=== PATIENT | female | born 1980 | race Caucasian/White ===

== ENCOUNTER 2022-09-13 17:46 | Emergency (ER) | payer MEDICAID, SELFPAY ==
[2022-09-13 17:47] VITALS: BP 147/100; PULSE 102; RESP 18; TEMP 36.1; O2SAT 98; BMI 40.6
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
[2022-09-13] MEDS: Acetaminophen 325 MG Tablet PO (19:26)
[2022-09-13] MEDS: Ibuprofen 200 MG Tablet 400 MG PO (19:26)
== END 2022-09-13 20:23 | disposition home or self-care (01) ==
PROVIDERS: Emergency Provider Emergency Medicine; Visit Provider Emergency Medicine
DX: S20.219A Contusion of unspecified front wall of thorax, initial encounter (principal); S50.11XA Contusion of right forearm, initial encounter; F17.210 Nicotine dependence, cigarettes, uncomplicated; J45.909 Unspecified asthma, uncomplicated; Z79.899 Other long term (current) drug therapy; Y04.8XXA Assault by other bodily force, initial encounter
CPT/HCPCS: 71101; 73090; 99285

== ENCOUNTER 2023-01-18 13:21 | Emergency (ER) | payer MEDICAID, SELFPAY ==
[2023-01-18 13:23] VITALS: BP 155/107; PULSE 90; RESP 18; TEMP 36.1; O2SAT 99; BMI 41.3
--- NOTE | 2023-01-18 13:59 | EDS_ITS ---
HPI History of Present Illness Chief Complaint: Cold Sx Detail of Chief Complaint: Productive cough for approximately 2 weeks Informant: patient Onset/Context/Timing Onset: Weeks (Approximately 2 weeks) Context: Sudden Onset Timing: Continuous and Waxes and wanes Quality: Dyspnea, wheezing, productive cough Location: Respiratory Current Severity: Mild Maximum Severity: Moderate Worsened by: Cough and activity Relieved by: Nothing Associated Symptoms Associated Symptoms: Denies fever, rhinorrhea, congestion, postnasal drainage or sore throat Narrative Narrative: Patient is a 42-year-old woman who presents with productive cough of green- colored sputum for approximate 2 weeks. She is a smoker. She presents smoking 1/4 pack/day. She was smoking half to 1 pack/day 5 years ago. She denies formal diagnosis of COPD. She has not been on prednisone the last 3 to 6 weeks. She denies fever or chills. Denies night sweats or weight loss. She denies headache, visual, ocular auditory symptoms. She denies chest pain. She denies GI or symptoms. She denies history of VTE. Denies leg pain, swelling discoloration. She has no risk factors for VTE. Prior similar symptoms: Yes Recent Illness/Hospitalization: No [facility] Medical History Asthma Home Medications albuterol sulfate 90 mcg/actuation aerosol inhaler (Ventolin HFA) 1 - 2 puff inhalation Q4H PRN PRN Wheezing ##1 02/12/14 [Rx Last Taken 09/28/15] albuterol sulfate 90 mcg/actuation aerosol inhaler (Ventolin HFA) 2 puff inhalation Q4H PRN PRN Wheezing ##1 01/18/23 [Rx Last Taken Unknown] doxycycline monohydrate 100 mg capsule 100 mg PO BID #14 CAPSULES 01/18/23 [Rx Last Taken Unknown] inhalational spacing device (Aerochamber MV spacer) #1 ea 01/18/23 [Rx Last Taken Unknown] prednisone 20 mg tablet 60 mg (3 x 20 mg) PO DAILY #12 TABLETS 01/18/23 [Rx Last Taken Unknown] Allergy/AdvReac Type Severity Reaction Status Date / Time amoxicillin [Amoxicillin] Allergy Hives Verified 01/18/23 13:23 Penicillins [cillins] Allergy Hives Verified 01/18/23 13:23 Social History (Updated 01/18/23 @ 13:32 by Nasreen Samuels) household members: family Smoking Status: Current every day smoker tobacco type: cigarettes ROS ROS ED Constitutional Constitutional ED: Denies chills, fever(s), subjective, sweats or weight loss Eyes Eyes: Denies blurry vision, change in vision or diplopia ENT ENT ED: Denies ear pain, rhinorrhea or sore throat Cardiovascular Cardiovascular: Denies chest pain, orthopnea, palpitations, paroxysmal nocturnal dyspnea or racing heartbeat Respiratory/Chest Respiratory/Chest: Reports cough, dyspnea, dyspnea on exertion and sputum; Denies orthopnea or paroxysmal nocturnal dyspnea Gastrointestinal Gastrointestinal: Denies abdominal pain, constipation, diarrhea, melena, nausea or vomiting Genitourinary Genitourinary ED: Denies dysuria, hematuria or urinary frequency Musculoskeletal Musculoskeletal: Denies arthralgias, back pain, myalgias or neck pain Integumentary Denies rash Neurologic Neurologic: Denies headache(s) or paresthesias Psychiatric Psychiatric: Denies anxiety Endocrine Endocrinology: Denies cold intolerance or heat intolerance Hematologic/Lymphatic Hematologic/Lymphatic: Reports systems reviewed and no addt'l complaints, except as documented Allergic/Immunologic Allergic/Immunologic ED: Denies mouth swelling or tongue swelling EXAM Physical Exam Const Vital Signs: 01/18/23 13:23 01/18/23 13:32 01/18/23 15:17 Temperature 97 F L Temperature Source Temporal Pulse Rate 90 88 Respiratory Rate 18 18 Respiratory Effort Normal Respiratory Pattern Normal Normal Blood Pressure 155/107 H Blood Pressure Mean 123 Pulse Ox 99 Oxygen Delivery Method Room Air 01/18/23 15:17 Temperature Temperature Source Pulse Rate Respiratory Rate Respiratory Effort Respiratory Pattern Blood Pressure Blood Pressure Mean Pulse Ox 96 Oxygen Delivery Method Room Air Positive well nourished, well developed and obese General Appearance ED: well developed and NAD; Negative for pallor Nutritional Appearance: obese HEENT Reports moist mucous membranes HEENT Narrative: Head is normal cephalic and atraumatic. Ears are normal. TMs are normal. Nares patent with no discharge. Posterior pharynx is normal. Eyes PERRL and EOMs intact bilaterally General Eye ED: Negative for pale conjunctiva or scleral icterus Neck no lymphadenopathy, supple and no JVD Chest Wall inspection of chest normal and palpation of chest normal Resp normal respiratory effort and No clear to auscultation bilaterally Auscultation: wheezes expiratory wheezes and scattered wheezes Cardio regular rate, regular rhythm, S1 normal heart sound, S2 normal heart sound and no murmurs GI normal to inspection, nondistended, normoactive bowel sounds, non-tender, non- distended and no masses; Negative for hepatosplenomegaly Back/Spine no CVA tenderness Thoracic Spine / Upper Back: Negative for thoracic spinal tenderness Lumbar Spine / Lower Back: Negative for lumbar spinal tenderness Extremity normal to inspection General Extremety ED: Negative for edema or tenderness General Extremity: Negative for edema Neuro oriented x3, CN's II-XII intact bilaterally and no sensory deficits noted Sensorium / Orientation: alert Psych mental status grossly normal Skin no rashes or lesions noted, no wounds and skin turgor normal General Skin Exam: Negative for jaundice or pallor MDM MDM MDM Narrative Medical decision making narrative: Frontal diagnosis is exacerbated COPD since she is a smoker versus pneumonia. Patient is PERC negative. Symptoms are not consistent with cardiac. Prior ER visits were reviewed. Plan is chest x-ray aerosol treatment, prednisone and doxycycline since the chest x-ray was normal. Underwent in to evaluate patient she did not receive her aerosol treatments. Should not receive her aerosol treatments since her orders did not go through. Once I fingerprinted her orders they went through History & Record Review Discussion w/independent historian: Patient and Friend Radiography Chest X-Ray - ED: 2 View and Read by ED Physician (Normal cardiac silhouette and size. Lung parenchyma is normal. Perihilar regions normal. Osseous structures are unremarkable. This independent reviewed interpreted by me.) Diagnostic Testing: Clinical Impression(s) from Imaging Studies Chest X-Ray 01/18/23 14:08 IMPRESSION: Normal x-ray examination of the chest. 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 Patient is moving more air. There is increased wheezing noted. Since patient has increased wheezing will discharge with burst of prednisone as well as antibiotics. Patient states that her MDI is essentially empty. A prescription for albuterol MDI was written as well as spacer since she does not have 1. Discharge Plan Triage Chief Complaint: Cold Sx ED Provider: Dinh Mclean Dx/Rx/DC Orders Clinical Impression: History of asthma, Acute bronchospasm, Acute exacerbation of chronic bronchitis, Hypertension Instructions: ED Bronchitis with Wheezing (Adult), ED Hypertension, To Be Confirmed Prescriptions: New prednisone 20 mg tablet 60 mg PO DAILY Qty: 12 0RF doxycycline monohydrate 100 mg capsule 100 mg PO BID Qty: 14 0RF albuterol sulfate [Ventolin HFA] 90 mcg/actuation HFA aerosol inhaler 2 puff inhalation Q4H PRN PRN (Reason: Wheezing) Qty: 1 0RF (DME) Aerochamber MV Spacer See Rx Instructions .Route Qty: 1 0RF Rx Instructions: As directed No Action albuterol sulfate [Ventolin HFA] 1 INHALER inhaler 1 - 2 puff inhalation Q4H PRN PRN (Reason: Wheezing) Qty: 1 0RF Primary Care Provider: Care Physician,No Primary Referrals: Care Physician,No Primary [Primary Care Provider] - Doctor,Your [Non-Staff] - 1 Week Activity Restrictions/Additional Instructions: If your breathing gets significantly worse you may administer 4 to 6 puffs of your rescue inhaler with use of spacer. Take medication prescribed until gone It is in your best interest to quit smoking. Your blood pressure was elevated and should be reassessed by your doctor. The name of your doctor is located on your insurance card issued to you by [facility]. Disposition Disposition: Home, Self Care
--- NOTE | 2023-01-18 14:08 | RAD_ITS ---
STUDY: X-RAY CHEST REASON FOR EXAM: Female, 42 years old. Productive cough, shortness of breath, wheezing TECHNIQUE: PA and lateral views of the chest. COMPARISON: Comparison is made with prior study of September 13, 2022. FINDINGS: The lungs are clear and expanded. There is no demonstrated pleural abnormality. Normal size heart. Normal mediastinum and key. Normal visualized pulmonary arteries. Normal visualized aortic arch and descending thoracic aorta. There are diffuse degenerative changes of the visualized thoracic spine. Normal visualized ribs, clavicles, and shoulders. There is no demonstrated abnormality of the visualized soft tissue structures of the upper abdomen. RAD/Chest PA and Lateral IMPRESSION: Normal x-ray examination of the chest. Electronically Signed: Jovany Colon MD at 14:27 EDT ,
[2023-01-18] MEDS: Doxycycline 100 MG CAPSULE PO (14:49)
[2023-01-18] MEDS: Albuterol 2.5 MG/3 ML VIAL.NEB. INHALATION (15:14)
[2023-01-18] MEDS: Ipratropium/Albuterol Sulfate 3 ML AMPUL.NEB INHALATION (15:14)
[2023-01-18 15:17] VITALS: PULSE 88; RESP 18; O2SAT 96
[2023-01-18] MEDS: predniSONE 20 MG Tablet 60 MG PO (15:35)
--- NOTE | 2023-01-18 15:59 | CM.ED ---
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 Patient lying on hospital bed and agreeable to speak with SW. SW inquired about patient's insurance and current PCP. Patient verified insurance and reports no current PCP. SW provided patient with a list of local PCPs in network with patient's insurance and accepting new patients. Patient was receptive towards list and voiced no other needs. SW remains available if needs arise. Angela Saldana MSW, [place]
[2023-01-18 16:19] VITALS: RESP 18
== END 2023-01-18 16:20 | disposition home or self-care (01) ==
PROVIDERS: Emergency Provider Emergency Medicine; Visit Provider Emergency Medicine
DX: J44.1 Chronic obstructive pulmonary disease with (acute) exacerbation (principal); I10 Essential (primary) hypertension; F17.210 Nicotine dependence, cigarettes, uncomplicated; E66.9 Obesity, unspecified
CPT/HCPCS: 94640; 71046; 99283

== ENCOUNTER 2023-05-31 14:51 | Emergency (ER) | payer MEDICAID, SELFPAY ==
[2023-05-31 14:52] VITALS: BP 145/97; PULSE 70; RESP 18; TEMP 36.2; O2SAT 100; BMI 41.5
--- OUTSIDE RECORDS SUMMARY | 2023-05-31 18:19 | XMS RPT_ITS | CCD ---
Author Name Unknown Address [address] [place] [address] Organization [facility] Care Team Providers Care Boiling Off Winder Name Role Phone OLIVIER EID Admitting Unavailable OLIVIER EID Attending Unavailable AA NO PCP, NO PCP Primary Care Unavailable AA NO PCP, NO PCP Primary Care Unavailable SANDRITA JEFFEYR Admitting Unavailable SANDRITA JEFFERY Attending Unavailable Unavailable Primary Care Provider Unavailabl e Allergies Allergy Classification Reported Allergen(s) Allergy Type Date of Onset Reaction(s) Facility Penicillins (antibiotic) (1 source) Amoxicillin Drug Allergy 11-16-2020 Swelling [facility] (1 source) Amoxicillin Drug Allergy [facility] Repository (1 source) Penicillin Drug Allergy [facility] (1 source) Amoxicillin Drug Allergy 11-16-2020 Swelling [facility] Medications Current Medications Medication Drug Class(es) Dates Sig (Normalized) Sig (Original) [id number] 200 actuat albuterol 0.09 mg/actuat metered dose inhaler (2 sources) beta2-Adrenergic Agonist take 2 puff(s) by inhalation every six hours as needed for wheezing albuterol sulfate HFA (VENTOLIN HFA) 108 (90 Base) MCG/ACT inhaler Inhale 2 puffs into the lungs every 6 hours as needed for Wheezing 0 Active sodium chloride flush 0.9 % injection 3 mL (1 source) Start: 09-26-2021 sodium chloride flush 0.9 % injection 3 mL Completed/Discontinued Medications Medication Drug Class(es) Dates Sig (Normalized) Sig (Original) aluminum & magnesium hydroxide-simethic one (MAALOX) 30 mL, lidocaine viscous hcl (XYLOCAINE) 5 mL (GI COCKTAIL) (1 source) Start: 09-26-2021 End: 09-26-2021 aluminum & magnesium hydroxide-simethi cone (MAALOX) 30 mL, lidocaine viscous hcl (XYLOCAINE) 5 mL (GI COCKTAIL) aspirin 81 mg chewable tablet (1 source) Platelet Aggregation Inhibitor, Nonsteroidal Anti-inflammatory Drug Start: 09-26-2021 End: 09-26-2021 aspirin chewable tablet 324 mg Problems Active Problems Problem Classification Problem Date Documented Da te Episodic/Chronic Abdominal pain (1 source) Epigastric pain; Translations: [Epigastric pain] Episodic Allergic reactions (1 source) Allergy status to penicillin; Translations: [ALLERGY STATUS TO PENICILLIN] Onset: 08-12-2019 Episodic External cause codes: Fall (1 source) Fall (on) (from) unspecified stairs and steps, initial encounter; Translations: [FALL ON FROM UNS STAIRS STEPS INIT] Onset: 04-04-2019 Headache; including migraine (2 sources) Headache; Translations: [HEADACHE] Onset: 08-12-2019 Episodic Nonspecific chest pain (1 source) Chest pain; Translations: [Chest pain, unspecified] Episodic Other ear and sense organ disorders (1 source) Otalgia, left ear; Translations: [Otalgia, unspecified] Episodic Past or Other Problems Problem Classification Problem Date Documented Da te Episodic/Chronic Other non-traumatic joint disorders (1 source) Pain in left ankle and joints of left foot; Translations: [PAIN IN LEFT ANKLE] Onset: 04-04-2019 Episodic Sprains and strains (1 source) Sprain of unspecified ligament of left ankle, initial encounter; Translations: [SPRAIN UNS LIGAMENT LT ANKLE INIT] Onset: 04-04-2019 Episodic Results Test Name Value Interpretation Reference Range Facil ity Vital Signs Date Time Vital Sign Value Performing Clinician Damien matute 09-26-2021 20:42-0400 Diastolic blood pressure 68 mm[Hg] [facility] 09-26-2021 20:42-0400 Heart rate 71 /min [facility] 09-26-2021 20:42-0400 Respiratory rate 18 /min [facility] 09-26-2021 20:42-0400 SaO2% (BldA) [Mass fraction] 98 % [facility] 09-26-2021 20:42-0400 Systolic blood pressure 132 mm[Hg] [facility] 09-26-2021 17:38-0400 Body height 146.1 cm [facility] 09-26-2021 17:38-0400 Body mass index (BMI) [Ratio] 36.58 kg/m2 [facility] 09-26-2021 17:38-0400 Body temperature 97.81 [degF] [facility] 09-26-2021 17:38-0400 Body weight 78.02 kg [facility] 11-16-2020 18:46-0400 Diastolic blood pressure 80 mm[Hg] [facility] Work Phone: 11-16-2020 18:46-0400 Heart rate 80 /min [facility] Work Phone: 11-16-2020 18:46-0400 Respiratory rate 18 /min [facility] Work Phone: 11-16-2020 18:46-0400 SaO2% (BldA) [Mass fraction] 97 % [facility] Work Phone: 11-16-2020 18:46-0400 Systolic blood pressure 120 mm[Hg] [facility] Work Phone: 11-16-2020 17:35-0400 Body height 152.4 cm [facility] Work Phone: 11-16-2020 17:35-0400 Body mass index (BMI) [Ratio] 38.67 kg/m2 [facility] Work Phone: 11-16-2020 17:35-0400 Body weight 89.81 kg [facility] Work Phone: 11-16-2020 17:09-0400 Body temperature 98.8 [degF] [facility] Work Phone: Encounters Encounter Date Encounter Type Care Provider Facility Start: 09-26-2021 End: 09-26-2021 Emergency department patient visit [facility] ED Procedures Date Procedure Procedure Detail Performing Clinician Start: 09-26-2021 Assay of troponin quantitative Onel Grewal APRN [employer] Work Phone: Start: 09-26-2021 Comprehensive metabo lic panel Onel Grewal APRN [employer] Work Phone: Start: 09-26-2021 Radiologic exam ches t 2 views Onel Grewal APRN [employer] Work Phone: Start: 09-26-2021 Ecg routine ecg w/le ast 12 lds w/i&r Onel Grewal [employer] Work Phone: Plan of Treatment Date Care Activity Detail Author Start: 01-13-2022 Influenza vaccination Flu vacc ine (Season Ended) [facility] Start: 01-13-2021 Influenza vaccination Flu vaccine (# 1) [facility] Work Phone: Start: 2000 DTaP/Tdap/Td vaccine (1 - Tdap) DTaP/Tdap/Td vaccine (1 - Tdap) [facility] Start: 1993 COVID-19 Vaccine (1) COVID-19 Vaccin e (1) [facility] Work Phone: Start: 1986 COVID-19 Vaccine (1) COVID-19 Vaccin e (1) [facility] EKG 12 Lead - Chest Pain EKG 12 Lead - Chest Pain ECG STAT 09/26/2021 5:57 PM EDT [facility] Work Phone: Payers Date Payer Category Payer Unknown [id number] 1980 Unknown [id number] 1958 Medicaid [id number] Social History Date Type Detail Facility Start: 11-16-2020 Tobacco smoking stat [facility] Current every day smoker [facility] Work Phone: Start: 11-16-2020 Tobacco use and exposure Never used [facility] Start: 11-16-2020 End: 09-26-2021 Alcohol intake Lifetime non-drinker (finding) [facility] Work Phone: Start: 11-16-2020 History SDOH Alcohol Frequency 1 [facility] Work Phone: Start: 1980 Sex Assigned At Not on file [facility] Work Phone: Start: 09-16-2021 End: 09-26-2021 Exposure to SARS-CoV-2 (event) Not sure [facility] Hospital Discharge instructions 11-16-2020 InstructionsAttachments Note Date & Type Note Facility 11-16-2020 Hospital Discharg e instructions Chris Alston PA-C - 11/16/2020 Follow-up with ENT. Return to the ED symptoms worsen or do not improve. Continue take odev-dcj-gynbnrk medication such as Aleve, Motrin, Tylenol as needed for somatic relief of discomfort. The following attachments cannot be sent through Care Everywhere.Earache: Adult (Martiniquais)documented in this encounter [facility] Work Phone: Evaluation note Note Date & Type Note Facility documented in this encounter [facility] Work Phone: Evaluation note Note Date & Type Note Facility documented in this encounter [facility] Work Phone: Hospital Discharge instructions Attachments Note Date & Type Note Facility Hospital Discharge instructions The following attachments cannot be sent through Care Everywhere.Chest Pain (Martiniquais)Dyspepsia (Martiniquais)documented in this encounter [facility] Work Phone: Summary Purpose Family History No Family History Records FoundNo Family History Records Found Advance Directives No Advanced Directives Records FoundNo Advanced Directives Records Found Reason for Referral Specialty Diagnoses / Procedures Referred By Tara randolph Referred To Contact Internal Medicine Diagnoses Chest pain, unspecified type Abdominal pain, epigastric Onel Grewal, PILY - [employer] [address] [place] [address] [place] [id number] Referral ID Status Reason Start Date Expiration Date V isits Requested Visits Authorized [id number] Open Specialty Services Required 09/26/2021 09/26/2022 1 1 Scheduling Instructions [facility] Internal Medicine - [address] [address] Additional Source Comments INFORMATION SOURCE (unrecogn ized section and content) DATE CREATED AUTHOR AUTHOR'S ORGANIZ ATION 10/08/2021 [facility] Reason for Visit (unrecogniz ed section and content) Reason Comments Chest Pain x 1 wk. pt states pa in came on while sitting watching tv. states felt like her heart rate paused then went to pain and became dizzy. Pt pain at 3/10, described as achey and sore. denies lightheadedness at this time, does report some slight SOB. Scheduled Active and Recently Administ ered Medications (unrecognized section and content) Linked Groups Order Group 1: Saline lock IV (COMPLETED) Routine, CONTINUOUS, Starting on 09/26/21 at 1800, Until Specified And sodium chloride flush 0.9 % injection 3 mLJump to med 3 mL, IntraVENous, EVERY 8 HOURS, First dose on 09/26/21 at 1749, Until Discontinued
Flush line with 3-5 mL
FOR RECORDS PERTAINING TO PATIENTS WHO ARE OR HAVE BEEN ENROLLED IN A CHEMICAL DEPENDENCY/SUBSTANCEABUSE PROGRAM, SOME INFORMATION MAY BE OMITTED. This clinical summary was aggregated from multiple sources. Caution should be exercised in using it in the provision of clinical care. This summary normalizes information from multiple sources, and as a consequence, information in this document may materially change the coding, format and clinical context of patient data. In addition, data may be omitted in some cases. CLINICAL DECISIONS SHOULD BE BASED ON THE PRIMARY CLINICAL RECORDS. [employer] provides no warranty or guarantee of the accuracy or completeness of information in this document.
== END 2023-05-31 18:05 | disposition left against medical advice (07) ==
LOC: ED 18:10
DX: R69 Illness, unspecified (principal); Z53.21 Procedure and treatment not carried out due to patient leaving prior to being seen by health care provider

== ENCOUNTER 2023-06-26 16:29 | Emergency (ER) | payer MEDICAID, SELFPAY ==
[2023-06-26 16:30] VITALS: BP 151/86; PULSE 105; RESP 20; TEMP 36.3; O2SAT 100; BMI 42.5
--- NOTE | 2023-06-26 16:51 | EDS_ITS ---
HPI <ROSS Arguelles - Last Filed: 06/26/23 20:08> HPI - Female History of Present Illness Chief Complaint: Narrative Narrative: Patient presenting today reporting that she is 13 weeks . This was confirmed via a urine test. She reports that she went to [place] emergency department a few weeks ago to have this confirmed, they obtained a urine test which was negative, she is requesting to have a blood test to confirm the . She is G1, P0. She denies any abdominal pain or vaginal bleeding. She reports that she did try calling [facility] for an appointment but has not heard back yet. She reports a PMH of asthma and tobacco use. Reports that she is currently trying to quit smoking. PFSH <ROSS Arguelles - Last Filed: 06/26/23 20:08> PFSH Medical History Asthma Heart murmur Home Medications albuterol sulfate 90 mcg/actuation aerosol inhaler (Ventolin HFA) 1 - 2 puff inhalation Q4H PRN PRN Wheezing ##1 02/12/14 [Rx Last Taken 09/28/15] inhalational spacing device (Aerochamber MV spacer) #1 ea 01/18/23 [Rx Last Taken Unknown] Allergy/AdvReac Type Severity Reaction Status Date / Time amoxicillin [Amoxicillin] Allergy Hives Verified 05/31/23 14:52 Penicillins [cillins] Allergy Hives Verified 05/31/23 14:52 Social History household members: family Smoking Status: Current every day smoker tobacco type: cigarettes and e- cigarettes ROS <ROSS Arguelles - Last Filed: 06/26/23 20:08> ROS ED Constitutional Constitutional ED: Denies chills or fever(s) Cardiovascular Cardiovascular: Denies chest pain Respiratory/Chest Respiratory/Chest: Denies cough or dyspnea Gastrointestinal Gastrointestinal: Denies abdominal pain, nausea or vomiting Genitourinary Genitourinary ED: Denies dysuria, hematuria or urinary frequency Musculoskeletal Musculoskeletal: Denies arthralgias or myalgias Integumentary Denies rash Neurologic Neurologic: Denies weakness EXAM <ROSS Arguelles - Last Filed: 06/26/23 20:08> Physical Exam Const Vital Signs: 06/26/23 16:30 06/26/23 18:14 Temperature 97.3 F L Temperature Source Temporal Pulse Rate 105 H 64 Respiratory Rate 20 H 15 Blood Pressure 151/86 H 124/77 H Blood Pressure Mean 107 92 Pulse Ox 100 98 Oxygen Delivery Method Room Air Positive well nourished, well developed and no apparent distress General Appearance ED: well developed HEENT Reports normocephalic and head/scalp atraumatic Mouth ED: Yes moist mucous membranes normal Eyes PERRL and EOMs intact bilaterally Neck full ROM and supple Chest Wall inspection of chest normal Resp normal respiratory effort and clear to auscultation bilaterally Cardio regular rate and regular rhythm GI soft to palpation, non-tender, non-distended and no masses Back/Spine normal ROM and normal to inspection Extremity normal to inspection and full ROM Neuro oriented x3, CN's II-XII intact bilaterally, moves all extremities, no focal motor deficits and no sensory deficits noted Sensorium / Orientation: awake and alert Psych mental status grossly normal and thought process normal Skin no rashes or lesions noted and no wounds <Dr. Sudarshan Rivera DO - Last Filed: 06/26/23 18:14> Physical Exam Const Vital Signs: 06/26/23 16:30 06/26/23 18:14 Temperature 97.3 F L Temperature Source Temporal Pulse Rate 105 H 64 Respiratory Rate 20 H 15 Blood Pressure 151/86 H 124/77 H Blood Pressure Mean 107 92 Pulse Ox 100 98 Oxygen Delivery Method Room Air MDM <ROSS Arguelles - Last Filed: 06/26/23 20:08> [facility] Narrative Medical decision making narrative: Patient presenting requesting to have a blood hCG test to confirm . She reports that she is currently about 13 weeks after confirming with a urine test. She has had no abdominal pain or vaginal bleeding, she reports that she feels well otherwise. Serum hCG is negative. I have given her an [facility] referral and she will be discharged home in stable condition. I have personally performed a face to face assessment of the patient and have reviewed the IVELISSE Note. I performed a substantive portion of the visit including all aspects of the following. My izaguirre findings include: History is [patient presents to the emergency department complaining of needing a confirmatory test of her . Patient states that she took a home test that was positive. She believes she might be 13 weeks . Her last menstrual period was early part of April. Patient states that she went to [facility] where she had a urine test weeks ago and that was negative. Patient complains of some breast tenderness and weight gain. She denies vomiting. She denies abdominal pain or vaginal bleeding. She states that she has been trying to get into see [facility] but has been unsuccessful. She has had no other pregnancies. No history of PCOS.] Exam is [HEENT-PERRLA, EOMI. Cranial nerves II through XII grossly intact. TMs clear. Mucous membranes moist. No adenopathy. Cardiovascular-regular rate and rhythm without murmur or ectopy Lungs-clear to auscultation, chest wall stable without crepitus or subcu emphysema Abdomen-normoactive bowel sounds, soft, nontender, no rebound or rigidity, no peritoneal signs. No abdominal masses noted. Extremities-intact ?4, normal range of motion, normal pulses, atraumatic] Medical Decison Making [we will obtain a serum test to evaluate further. Patient hemodynamically stable.] Other additions or changes: [None] patient serum test was negative. At this point she is advised to follow-up with her FORENSIC SPECIALIST regarding when she is not having menstrual period's. She is hemodynamically stable and is not having any abdominal pain and clinically looks well. I do not feel any further imaging is indicated. Lab Data Attestation: I reviewed the patient's lab results. Labs: Laboratory Results - last 24 hr 06/26/23 16:55 Serum , Qual NEGATIVE <Dr. Sudarshan Rivera, DO - Last Filed: 06/26/23 18:14> [facility] Narrative Medical decision making narrative: Patient presenting requesting to have a blood hCG test to confirm . She reports that she is currently about 13 weeks after confirming with a urine test. She has had no abdominal pain or vaginal bleeding, she reports that she feels well otherwise. I have personally performed a face to face assessment of the patient and have reviewed the IVELISSE Note. I performed a substantive portion of the visit including all aspects of the following. My izaguirre findings include: History is [patient presents to the emergency department complaining of needing a confirmatory test of her . Patient states that she took a home test that was positive. She believes she might be 13 weeks . Her last menstrual period was early part of April. Patient states that she went to [facility] where she had a urine test weeks ago and that was negative. Patient complains of some breast tenderness and weight gain. She denies vomiting. She denies abdominal pain or vaginal bleeding. She states that she has been trying to get into see [facility] but has been unsuccessful. She has had no other pregnancies. No history of PCOS.] Exam is [HEENT-PERRLA, EOMI. Cranial nerves II through XII grossly intact. TMs clear. Mucous membranes moist. No adenopathy. Cardiovascular-regular rate and rhythm without murmur or ectopy Lungs-clear to auscultation, chest wall stable without crepitus or subcu emphysema Abdomen-normoactive bowel sounds, soft, nontender, no rebound or rigidity, no peritoneal signs. No abdominal masses noted. Extremities-intact ?4, normal range of motion, normal pulses, atraumatic] Medical Decison Making [we will obtain a serum test to evaluate further. Patient hemodynamically stable.] Other additions or changes: [None] patient serum test was negative. At this point she is advised to follow-up with her FORENSIC SPECIALIST regarding when she is not having menstrual period's. She is hemodynamically stable and is not having any abdominal pain and clinically looks well. I do not feel any further imaging is indicated. Lab Data Labs: Laboratory Results - last 24 hr 06/26/23 16:55 Serum , Qual NEGATIVE Discharge Plan Triage Chief Complaint: ED Midlevel Provider: Samara Rodriguez ED Provider: Sudarshan Rivera Dx/Rx/DC Orders Clinical Impression: Amenorrhea Instructions: ED Amenorrhea Prescriptions: No Action albuterol sulfate [Ventolin HFA] 1 INHALER inhaler 1 - 2 puff inhalation Q4H PRN PRN (Reason: Wheezing) Qty: 1 0RF (DME) Aerochamber MV Spacer See Rx Instructions .Route Qty: 1 0RF Rx Instructions: As directed Primary Care Provider: Care Physician,No Primary Referrals: Noble Mcnamara MD [Med Staff - Active Staff] - 1 Week Care Physician,No Primary [Primary Care Provider] - Activity Restrictions/Additional Instructions: Follow-up with [facility] SPECIALIST. Disposition Disposition: Home, Self Care Discharge Date/Time: 06/26/23 18:15
[2023-06-26 18:02] LABS: Internal QC Validated? YES +Cl - CLEAR BKGD; Pregnancy, Serum, hCG Quali. NEGATIVE Negative
[2023-06-26 18:14] VITALS: BP 124/77; PULSE 64; RESP 15; O2SAT 98
== END 2023-06-26 18:15 | disposition home or self-care (01) ==
PROVIDERS: Physician Assistant; Emergency Provider Emergency Medicine; Visit Provider Emergency Medicine
DX: N91.2 Amenorrhea, unspecified (principal); Z32.02 Encounter for pregnancy test, result negative; F17.210 Nicotine dependence, cigarettes, uncomplicated; F17.290 Nicotine dependence, other tobacco product, uncomplicated
CPT/HCPCS: 84703; 99282

== ENCOUNTER 2023-12-26 20:16 | Emergency (ER) | payer MEDICAID, SELFPAY ==
[2023-12-26 20:17] VITALS: BP 136/94; PULSE 100; RESP 16; TEMP 36.1; O2SAT 96; BMI 45.0
--- NOTE | 2023-12-26 22:41 | ED.RN ---
Called for pt, no answer.
== END 2023-12-26 22:40 | disposition left against medical advice (07) ==
LOC: ED 22:48
DX: Z53.21 Procedure and treatment not carried out due to patient leaving prior to being seen by health care provider (principal)

== ENCOUNTER 2023-12-27 15:27 | Emergency (ER) | payer MEDICAID, SELFPAY ==
[2023-12-27 15:28] VITALS: BP 153/110; PULSE 89; RESP 18; TEMP 36.2; O2SAT 97; BMI 44.5
--- NOTE | 2023-12-27 16:09 | ED.VIS.FALL ---
HPI HPI - Fall History of Present Illness Chief Complaint: Fall Informant: patient Occured/Mechanism Occurred: Yesterday Mechanism/Context: Yes same level fall and Yes trip Pain/Injury Location: Abdomen Pain Location: abdomen Quality of Pain: - (Cramping) Worsened by: Nothing Relieved by: Heat, laying on side Associated Symptoms Associated Symptoms: Negative for Parasthesias, Weakness, Loss of function, Inability to ambulate, Loss of consciousness or Amnesia Narrative Narrative: Patient presents after a fall that occurred yesterday. Patient states she tripped over uneven pavement and fell forward. Patient states she landed on her chest and abdomen. Patient states she has been having some cramping in her abdomen. Patient states it is better with heat pads and a hot bath. Patient states that is also better with laying on her side. Patient states nothing makes it worse. Patient denies any head injury or loss of consciousness. Patient denies any paresthesias or weakness. Patient denies any other injuries. [facility] Medical History Heart murmur Asthma Home Medications ?Medication ?Instructions ?Recorded ?Last Taken ?Type albuterol sulfate 90 mcg/actuation 1 - 2 puff inhalation Q4H PRN PRN 02/12/14 09/28/15 Rx aerosol inhaler (Ventolin HFA) Wheezing ##1 inhalational spacing device #1 ea 01/18/23 Unknown Rx (Aerochamber MV spacer) Allergy/AdvReac Type Severity Reaction Status Date / Time amoxicillin (Amoxicillin) Allergy Hives Verified 12/27/23 15:28 Penicillins (cillins) Allergy Hives Verified 12/27/23 15:28 no surgical history Social History household members: family Smoking Status: Current every day smoker tobacco type: cigarettes and e-cigarettes ROS ROS ED Constitutional Constitutional ED: Denies chills or fever(s) Eyes Eyes: Denies blurry vision or change in vision ENT ENT ED: Denies rhinorrhea or sore throat Cardiovascular Cardiovascular: Denies chest pain or palpitations Respiratory/Chest Respiratory/Chest: Denies cough or dyspnea Gastrointestinal Gastrointestinal: Reports abdominal pain; Denies nausea or vomiting Genitourinary Genitourinary ED: Denies dysuria or hematuria Musculoskeletal Musculoskeletal: Denies back pain or neck pain Integumentary Denies abscess or rash Neurologic Neurologic: Denies headache(s) or weakness Allergic/Immunologic Allergic/Immunologic ED: Denies mouth swelling or urticaria EXAM Physical Exam Const Vital Signs: 12/27/23 15:28 12/27/23 15:28 Temperature 97.2 F L Temperature Source Temporal Pulse Rate 89 Respiratory Rate 18 Respiratory Effort Normal Non-Labored Respiratory Depth Normal Respiratory Pattern Normal Blood Pressure 153/110 H Blood Pressure Mean 124 Pulse Ox 97 Oxygen Delivery Method Room Air Room Air Positive well nourished and well developed General Appearance ED: well developed and NAD HEENT Reports normocephalic atraumatic Neck full ROM and supple Resp normal respiratory effort and clear to auscultation bilaterally Cardio regular rate and regular rhythm GI non-distended GI Narrative: There is mild upper abdominal tenderness. There is no rebound or guarding noted. Auscultation: normoactive bowel sounds Palpation: soft Neuro oriented x3, CN's II-XII intact bilaterally, moves all extremities, no focal motor deficits and no sensory deficits noted Prachi Coma Scale: document GCS findings Spontaneous Obeys Commands Oriented 15 Sensorium / Orientation: alert Motor Exam: strength 5/5 throughout Psych mental status grossly normal MDM MDM MDM Narrative Medical decision making narrative: Patient was advised that this is most likely an abdominal contusion. Patient states she researched online and which she found online was that she could have internal bleeding. Patient does not show any signs or symptoms of internal bleeding at this time. Patient was instructed to continue using heat to the area. Patient was instructed use Tylenol as needed for pain. Patient was instructed to follow-up with her primary care physician in 5 to 7 days. Patient was instructed return if worse in any way. Patient understood and was agreeable with the plan. All questions were answered. Discharge Plan Triage Chief Complaint: Fall ED Provider: David Palumbo Dx/Rx/DC Orders Clinical Impression: Abdominal wall contusion, Nicotine use disorder Instructions: ED Soft Tissue Contusion Prescriptions: No Action albuterol sulfate [Ventolin HFA] 1 INHALER inhaler 1 - 2 puff inhalation Q4H PRN PRN (Reason: Wheezing) Qty: 1 0RF (DME) Aerochamber MV Spacer See Rx Instructions .Route Qty: 1 0RF Rx Instructions: As directed Primary Care Provider: Care Physician,No Primary Referrals: Noble Lopez MD [Med Staff - [employer]] - 5-7 Days Care Physician,No Primary [Primary Care Provider] - Print Language: Guatemalan Disposition Disposition: Home, Self Care
[2023-12-27 16:33] VITALS: BP 134/78; PULSE 74; RESP 18; TEMP 36.6; O2SAT 98
== END 2023-12-27 16:33 | disposition home or self-care (01) ==
LOC: ED 16:22
PROVIDERS: Emergency Provider Emergency Medicine; Visit Provider Emergency Medicine
DX: S30.1XXA Contusion of abdominal wall, initial encounter (principal); F17.210 Nicotine dependence, cigarettes, uncomplicated; F17.290 Nicotine dependence, other tobacco product, uncomplicated; J45.909 Unspecified asthma, uncomplicated; W18.30XA Fall on same level, unspecified, initial encounter
CPT/HCPCS: 99282

== ENCOUNTER 2024-02-15 02:38 | Emergency (ER) | payer MEDICAID, SELFPAY ==
[2024-02-15 02:39] VITALS: BP 171/91; PULSE 79; RESP 18; TEMP 36.6; O2SAT 97; BMI 45.3
--- NOTE | 2024-02-15 02:59 | CT_ITS ---
INDICATION: SEIZURE EXAMINATION: CT BRAIN - CT Head or Brain W/O Contrast Injection TECHNIQUE: Multiple axial images were obtained of the head without intravenous contrast. A radiation dose optimization technique was used for this scan. IV Contrast dosage and agent: None. COMPARISON: None FINDINGS: BRAIN PARENCHYMA: No intra- or extra-axial hemorrhage. No evidence of acute infarct. No intracranial mass or mass effect. Unremarkable white matter for age. There is preservation of the richardson/white matter interface. Posterior fossa structures are unremarkable. CSF SPACES: Cerebral volume appropriate for age. No hydrocephalus. Basal cisterns are patent. CALVARIUM, SKULL BASE, PARANASAL SINUSES AND MASTOID AIR CELLS: No acute osseous finding. Paransasal sinuses are clear. Mastoid air cells are clear. ORBITS: Both globes, extraocular muscles, optic nerves and retrobulbar fat appear unremarkable. ASPECTS Score for Acute Strokes: 10 CT/Brain/Head without Contrast IMPRESSION: Negative Brain CT without contrast. Electronically Signed: Linus Rollins MD at 3:51 EDT ,
--- NOTE | 2024-02-15 03:03 | EDS_ITS ---
HPI History of Present Illness Chief Complaint: Seizure Informant: patient and spouse/S.O. Narrative Narrative: Patient is a 43-year-old female with past medical history of asthma. She states she has been under a great deal of stress recently. She reports that she went to bed normally and then boyfriend/significant other states that he awoke with her shaking next to him. He states that she would not respond when he was calling her name and when did not wake up as he was trying to stimulate her. He states that after the shaking stopped patient seemed out of it for a few minutes. The patient denies any history of seizure activity she denies any history of alcohol abuse which would have led to alcohol withdrawal seizure and she denies any history of benzodiazepine use which would lead to a benzodiazepine withdrawal seizure. She states she does have concern that she had a seizure event at home this evening with this comes in for evaluation [facility] Medical History Heart murmur Asthma Home Medications ?Medication ?Instructions ?Recorded ?Last Taken ?Type albuterol sulfate 90 mcg/actuation 1 - 2 puff inhalation Q4H PRN PRN 02/12/14 09/28/15 Rx aerosol inhaler (Ventolin HFA) Wheezing ##1 inhalational spacing device #1 ea 01/18/23 Unknown Rx (Aerochamber MV spacer) Allergy/AdvReac Type Severity Reaction Status Date / Time amoxicillin (Amoxicillin) Allergy Hives Verified 02/15/24 02:44 Penicillins (cillins) Allergy Hives Verified 02/15/24 02:44 Social History household members: family Smoking Status: Current every day smoker tobacco type: cigarettes and e- cigarettes ROS ROS ED Constitutional Constitutional ED: Denies chills or fever(s) Eyes Eyes: Denies blurry vision or change in vision ENT ENT ED: Denies sore throat Cardiovascular Cardiovascular: Denies chest pain, palpitations or racing heartbeat Respiratory/Chest Respiratory/Chest: Denies cough or dyspnea Gastrointestinal Gastrointestinal: Denies abdominal pain, diarrhea, nausea or vomiting Genitourinary Genitourinary ED: Denies dysuria Musculoskeletal Musculoskeletal: Denies myalgias Integumentary Denies rash Neurologic Neurologic: Reports other Details: Positive seizure ; Denies headache(s), paresthesias or weakness Psychiatric Psychiatric: Reports anxiety Hematologic/Lymphatic Hematologic/Lymphatic: Denies easy bleeding or easy bruising EXAM Physical Exam Const Vital Signs: 02/15/24 02:39 Temperature 97.9 F Temperature Source Oral Pulse Rate 79 Respiratory Rate 18 Blood Pressure 171/91 H Blood Pressure Mean 117 Pulse Ox 97 Oxygen Delivery Method Room Air Positive well nourished and well developed General Appearance ED: well developed; Negative for pallor HEENT Reports moist mucous membranes HEENT Narrative: There is a faint abrasion to the right cheek that would correlate with central seizure activity No airway edema or compromise No findings in the posterior pharynx to suggest infection Eyes PERRL and EOMs intact bilaterally General Eye ED: Negative for scleral icterus Neck supple Resp normal respiratory effort and clear to auscultation bilaterally Cardio regular rate and regular rhythm GI normal to inspection, nondistended, normoactive bowel sounds, non-tender, non- distended and no masses Auscultation: normoactive bowel sounds Palpation: soft Extremity normal to inspection Neuro oriented x3, CN's II-XII intact bilaterally and no sensory deficits noted Neuro Narrative: Cranial nerves II through XII are grossly intact there are no focal neurologic deficits No pronator drift no dysmetria no truncal ataxia NIH stroke scale score of 0 GCS of 15 Sensorium / Orientation: alert Motor Exam: strength 5/5 throughout Psych mental status grossly normal Skin no rashes or lesions noted and no wounds General Skin Exam: Negative for jaundice or pallor MDM MDM MDM Narrative Medical decision making narrative: Patient arrived to the ER hypertensive otherwise with stable vitals. She reported along with her significant other potential seizure-like activity. She denies any history of alcohol abuse or benzodiazepine use which would go against a withdrawal seizure. She denies any family history of brain tumor and there is been no report or signs of head injury going against a mass or hemorrhagic stroke as a cause of her seizure. There is also concern this could be related to electrolyte disturbance such as low sodium. Therefore, I elected to perform basic laboratory studies with a noncontrast head CT. Labs revealed no clinic ally significant findings such as hyponatremia and patient is not going against preeclampsia/eclampsia. Head CT also revealed no signs of bleed or mass causing intracranial pressure increase as the cause. The patient had no bouts of seizure activity while in the ER. Therefore at this time his history and exam indicate this was most likely a nonepileptic seizure brought on by stress/anxiety and patient's workup is negative and vitals are stable and her neurologic exam is normal she is otherwise safe for discharge and can follow-up with neurology on an outpatient basis for further assessment History & Record Review Discussion w/independent historian: Patient and Significant other Lab Data Attestation: I reviewed the patient's lab results. Labs: Laboratory Results - last 24 hr 02/15/24 03:05 WBC 8.4 RBC 4.63 Hgb 14.0 Hct 43.5 MCV 94.0 MCH 30.2 MCHC 32.2 RDW Std Deviation 43.4 RDW Coeff of Venecia 12.6 Plt Count 242 MPV 11.1 Immature Gran % (Auto) 0.200 Neut % (Auto) 66.8 Lymph % (Auto) 21.1 Curry % (Auto) 8.9 Eos % (Auto) 2.4 Baso % (Auto) 0.6 Absolute Neuts (auto) 5.6 Absolute Lymphs (auto) 1.76 Nucleated RBC % 0 Sodium 139 Potassium 3.6 Chloride 105 Carbon Dioxide 28.0 Anion Gap 6 BUN 17 Creatinine 0.70 Estim Creat Clear Calc 108.06 Est GFR (MDRD) Af Amer 118 Est GFR (MDRD) Non-Af 97 BUN/Creatinine Ratio 24.3 H Glucose 102 Calcium 9.3 Magnesium 2.0 Serum , Qual NEGATIVE Discharge Plan Triage Chief Complaint: Seizure ED Provider: David Olsen Dx/Rx/DC Orders Clinical Impression: Seizure-like activity, Hypertension, Asthma Instructions: ED Seizure New [facility] Adult, ED Conversion Reaction Prescriptions: No Action albuterol sulfate [Ventolin HFA] 1 INHALER inhaler 1 - 2 puff inhalation Q4H PRN PRN (Reason: Wheezing) Qty: 1 0RF (DME) Aerochamber MV Spacer See Rx Instructions .Route Qty: 1 0RF Rx Instructions: As directed Primary Care Provider: Care Physician,No Primary Referrals: Wisam Yepez MD [Non-Staff -Ordering Privileges] - Care Physician,No Primary [Primary Care Provider] - Activity Restrictions/Additional Instructions: Your history and exam indicate you had a nonepileptic seizure. This is typically brought on by stress response. Please try to reduce the stress in your life as this will prevent any further activity and follow-up with neurology to confirm your diagnosis and return to the ER should you have any further concerns Print Language: Irish Disposition Disposition: Home, Self Care
[2024-02-15 03:18] LABS: Absolute Lymphocyte Count 1.76 X10^3/uL (0.83-4.51); Absolute Neutrophil Count 5.6 X10^3/uL (2.0-7.7); Basophil# 0.05 X10^3/uL; Basophil% 0.6 % (0-1); Eosinophils% 2.4 % (0-5); Hematocrit 43.5 % (37-47); Lymphocyte # 1.76 X10^3/ul (0.83-4.51); Lymphocyte % 21.1 % (19-41); Mean Corp Hgb Conc 32.2 g/dL (32-36); Mean Corpuscular Hgb 30.2 pg (27.0-32.0); Mean Platelet Vol. 11.1 fl (6.2-12.0); Monocyte# 0.74 X10^3/uL; Monocyte% 8.9 % (0-10); NRBC Flagged by Analyzer 0 % (0-5); Neutrophil # 5.58 X10^3/uL (2.7-7.7); Neutrophil % 66.8 % (47-70); Platelet Count 242 K/mm3 (150-450); RBC Distribution Width CV 12.6 % (11.6-14.6); RBC Distribution Width SD 43.4 fl (35.1-43.9); Red Blood Count 4.63 M/mm3 (4.2-5.4); White Blood Count 8.4 K/mm3 (4.4-11.0)
[2024-02-15 03:24] LABS: Internal QC Validated? YES +Cl - CLEAR BKGD; Pregnancy, Serum, hCG Quali. NEGATIVE Negative
[2024-02-15 03:27] LABS: Anion Gap 6 (5-15); BUN 17 mg/dL (7-18); BUN/Creat Ratio 24.3 RATIO (10-20); Calcium,Total 9.3 mg/dL (8.5-10.1); Chloride 105 mmol/L (98-107); EST Glomerular Filtration Rate 97 mL/min (>60); Est Glom Filt Rate - Afr Amer 118 mL/min (>60); Estimated Creatinine Clearance 108.06 ml/min; Glucose 102 mg/dL (74-106); Potassium 3.6 mmol/L (3.5-5.1); Sodium Level 139 mmol/L (136-145)
[2024-02-15 04:17] VITALS: BP 138/64; PULSE 78; RESP 18; TEMP 36.6; O2SAT 98
== END 2024-02-15 04:19 | disposition home or self-care (01) ==
PROVIDERS: Emergency Provider Emergency Medicine; Visit Provider Emergency Medicine
DX: R56.9 Unspecified convulsions (principal); I10 Essential (primary) hypertension; J45.909 Unspecified asthma, uncomplicated; F17.210 Nicotine dependence, cigarettes, uncomplicated; F17.290 Nicotine dependence, other tobacco product, uncomplicated; Z79.51 Long term (current) use of inhaled steroids
CPT/HCPCS: 70450; 80048; 83735; 84703; 85025; 99282